=== PATIENT | male | born 1955 | race Caucasian/White ===

== ENCOUNTER → 2024-10-16 | Outpatient (CLI) | payer MEDICARE, BC ==
--- NOTE | 2024-10-16 12:41 | RADIOLOGY REPORT ---
EXAM: CT CT HEAD HISTORY: HEADACHE,RHINITIS COMPARISON: None TECHNIQUE: Noncontrast axial CT images of the head were performed. Sagittal and coronal reformatted i mages were obtained. This CT exam was performed using 1 or more of the following dose reduction techn iques: Automated exposure control, adjustment of the mA and/or kv according to patient size, or the u se of iterative reconstruction techniques. Radiation Dose: CTDI volume is 48.31 mGy. Dose-length product is 820.04 mGy*cm FINDINGS: There is mild global brain atrophy. No intracranial hemorrhage, mass, midline shift, hydrocephalus, o r evidence of acute large vessel infarct. There is a small calcification along the lateral margin of the right 4th ventricle (image 8, series 2). There is a mucous retention cyst in the right maxillary sinus. There is mild mucosal thickening of the bilateral ethmoid sinuses. The bilateral mastoid air c ells and middle ear spaces are clear. No cranial fracture or scalp edema. Probable old bilateral nasa l bone fractures. IMPRESSION: 1. No acute intracranial process. 2. Mild paranasal sinus disease.
--- NOTE | 2024-10-16 12:48 | RADIOLOGY REPORT ---
CT CT SINUS Indication: HEADACHES AND RHINITIS EXAM DATE: 10/16/2024 11:04 AM COMPARISON: None TECHNIQUE: CT of the paranasal sinuses without intravenous contrast. RADIATION DOSE: CTDIvol: 55 mGy, DLP: 742 mGy*cm FINDINGS: Mild mucosal thickening of the ethmoids. Right maxillary sinus mucosal retention cyst/ polyp measurin g 8 mm. Mild mucosal thickening left maxillary sinus. The imaged portions of the mastoids are well pneumatized. Sphenoid sinus septum is slightly deviated to the left. Sphenoid sinus septum deviated to the left. The orbits and retrobulbar spaces are unremarkable. IMPRESSION: Very mild paranasal sinus disease.
== END | disposition home or self-care (01) ==
LOC: RAD 10:52
PROVIDERS: ATTEND Internal Medicine
DX: J34.2 Deviated nasal septum (principal); J34.1 Cyst and mucocele of nose and nasal sinus; J30.9 Allergic rhinitis, unspecified; J34.89 Other specified disorders of nose and nasal sinuses; R51.9 Headache, unspecified; G31.89 Other specified degenerative diseases of nervous system; G93.89 Other specified disorders of brain
CPT/HCPCS: 70450; 70486